=== PATIENT | male | born 1965 | race Caucasian/White ===

== ENCOUNTER 2016-06-05 10:26 | Emergency (ER) | payer OTHER, MEDICARE ==
[~2016-06-05] VITALS: Ht 185.4 cm; Wt 92.7 kg
[2016-06-05 10:29] VITALS: BP 139/96; PULSE 63; RESP 20; TEMP 98.6; O2SAT 92
[2016-06-05 10:54] VITALS: BP 143/82; PULSE 54; RESP 18; O2SAT 96
[2016-06-05] MEDS ORDERED: ALBUAER3 INH (11:12)
[2016-06-05] MEDS ORDERED: ZOFR4TAB PO (11:12)
[2016-06-05] MEDS ORDERED: PRED50 PO (11:12)
[2016-06-05] MEDS ORDERED: ZITHTAB PO (11:50)
--- NOTE | 2016-06-05 11:54 | PD ---
HPI Chief Complaint: Respiratory Symptoms Time Seen by Provider: 10:58 Travel History International Travel<30 days: No Contact w/Intl Traveler<30days: No Traveled to known affect area: No History of Present Illness HPI This patient complains of coughing up phlegm with blood in it. He says that his house has mold in it. He is worried about having a fungal infection. He specifically requests sputum be sent for fungal evaluation. He is [facility] for this given a prescription for antifungal medicine. He is currently on steroids and inhaler. He has no pulmonary disease and never smoked. He's also been to 3 different emergency rooms recently for the same thing. 2 days ago at [facility] emergency room he had a CT of his chest which was negative per his report. No fever. No chest pain. Symptoms severity is mild to moderate. PFSH Past Medical History Cancer: Yes (skin face) Past Surgical History Other Surgery: Yes (back, sciatic) Social History Alcohol Use: Yes (Social) Tobacco Use: No Substance Use: No Allergies-Medications (Allergen,Severity, Reaction): Coded Allergies: Vioxx (Verified Adverse Reaction, Severe, RHABDOMYOLYSIS, 06/05/16) Reported Meds & Prescriptions Reported Meds & Active Scripts Active Zithromax Z-Dustin (Azithromycin) 250 Mg Dspk 250 Mg PO DIRECTED 500 MG (2 tabs) day 1, then 1 tab days 2-5. Reported Proair Hfa 8.5 GM Inh (Albuterol Sulfate) 90 Mcg/Act Aer 2 Puff INH Q4-6H PRN 108 mcg/actuation Zofran (Ondansetron HCl) 4 Mg Tab 4 Mg PO Q8HR PRN Prednisone 50 Mg Tab 60 Mg PO DAILY Review of Systems General / Constitutional: No: Fever Cardiovascular: No: Chest Pain or Discomfort Respiratory: Positive: Cough Physical Exam Narrative RESPIRATORY: Respiratory effort unlabored, no retractions or use of accessory muscles. Breath sounds are clear and symmetric. CARDIOVASCULAR: Regular rate and rhythm without murmur. Extremities showed no edema or varicosities. NECK: Symmetrical appearance, midline trachea. No mass or crepitus. Thyroid without enlargement, tenderness, or mass. GASTROINTESTINAL: Abdomen soft, non-tender, nondistended. Positive bowel sounds. No hepato-splenomegaly, or palpable masses. No guarding. Data Data Last Documented VS Vital Signs Date Time Temp Pulse Resp B/P Pulse Ox O2 Delivery O2 Flow Rate FiO2 06/05/16 10:54 54 18 143/82 96 Room Air 06/05/16 10:29 98.6 Orders Electrocardiogram (06/05/16 ) Sputum Fungus Cult And Stain (06/05/16 11:49) Sputum Culture And Gram Stain (06/05/16 11:49) MDM Medical Decision Making Medical Screen Exam Complete: Yes Emergency Medical Condition: Yes Medical Record Reviewed: Yes Differential Diagnosis Bronchitis, pneumonia, COPD Narrative Course I have reviewed the patient's electronic medical record. Patient has a normal exam and normal vital signs. Room air saturation is 100% Lungs are clear I don't see emergent indication for further studies based on the large scale workup he is had the last few days. I did send a sputum for culture of bacteria and fungus They are where the fungal studies take a long time. They will have their [facility] primary check on the results of the studies He has not been on antibiotics throughout the course of this illness so I gave him a Zithromax pack Diagnosis Primary Impression: Acute bronchitis due to infection Additional Impression: Cough with hemoptysis Additional Instructions: The patient was advised to follow up with their physician and return if they worsen. Have your primary physician follow-up on the sputum studies we started today Med/Other Pt SpecificInfo: Prescription(s) given Scripts Azithromycin (Zithromax Z-Dustin)250 Mg [id number] Mg PO DIRECTED #1 DSPK Ref 0 500 MG (2 tabs) day 1, then 1 tab days 2-5. Prov:Lc Paez MD 06/05/16 Disposition: 01 DISCHARGE HOME Condition: Stable Lc Paez MD Jun 05, 2016 11:54
[2016-06-05 12:00] VITALS: BP 143/86
--- NOTE | 2016-06-05 21:42 | EKG ---
Date Performed: 06/05/2016 Time Performed: 10:45:17 PTAGE: 50 years EKG: SINUS BRADYCARDIA BORDERLINE ECG NO PREVIOUS TRACING DOCTOR: Sita Kwok Interpretating Date/Time 06/05/2016 21:41:11
== END 2016-06-05 12:37 | disposition home or self-care (01) ==
LOC: NEPA 10:26
DX: J20.9 Acute bronchitis, unspecified (principal); R94.31 Abnormal electrocardiogram [ECG] [EKG]
CPT/HCPCS: 87070; 87102; 87205; 87206; 93005

== ENCOUNTER 2016-06-11 10:39 | Emergency (ER) | payer MEDICARE, OTHER ==
[~2016-06-11] VITALS: Ht 182.9 cm; Wt 85.0 kg
[~2016-06-11 10:39] MED LIST: ALBUAER3 INH; PRED50 PO; ZITHTAB PO; ZOFR4TAB PO
[2016-06-11 10:44] VITALS: BP 151/94; PULSE 66; RESP 18; TEMP 98.2; O2SAT 98
--- NOTE | 2016-06-11 10:48 | PD ---
HPI . Left arm numbness, pain and chest pain Chief Complaint: Pain: Acute or Chronic Time Seen by Provider: 10:41 Travel History International Travel<30 days: No Contact w/Intl Traveler<30days: No Traveled to known affect area: No History of Present Illness HPI 50-year-old male with history of anxiety, chronic back pain, history of DVT in 1995 secondary acute trauma, hyperlipidemia, vein stripping, rhabdomyolysis in 2001 secondary Vioxx and Celebrex usage, history of basal cell carcinoma on the nose that had been removed here with complaints of left arm numbness, tingling, heaviness and chest discomfort. Patient says he was having the chest discomfort and decided [facility]. However the triage nurse decided to call fire rescue instead. He tells me that all of his symptoms are more than likely related to some issues with mold growing in his house. He reports that his caregiver who is also his significant other and mother of his child has issues, but they are not exactly the same as his. Of note he has been so the hospital 5 times in the last week. Most recently he was here at [place] on June 05 for mold exposure. He was treated with azithromycin. At the time of examination he denies any nausea, vomiting, diaphoresis or abdominal pain. He has no weakness or fatigue. [facility] Past Medical History Cancer: Yes (skin face) Past Surgical History Other Surgery: Yes (back, sciatic) Social History Alcohol Use: Yes (Social) Tobacco Use: No Substance Use: No Allergies-Medications (Allergen,Severity, Reaction): Coded Allergies: Vioxx (Verified Adverse Reaction, Severe, RHABDOMYOLYSIS, 06/11/16) Reported Meds & Prescriptions Reported Meds & Active Scripts Active Aspirin 325 Mg Tab 325 Mg PO DAILY Reported Proair Hfa 8.5 GM Inh (Albuterol Sulfate) 90 Mcg/Act Aer 2 Puff INH Q4-6H PRN 108 mcg/actuation Zofran (Ondansetron HCl) 4 Mg Tab 4 Mg PO Q8HR PRN Prednisone 50 Mg Tab 60 Mg PO DAILY Review of Systems General / Constitutional: No: Fever Eyes: No: Visual changes HENT: No: Headaches Cardiovascular: Positive: Chest Pain or Discomfort, No: Edema Respiratory: No: Shortness of Breath Gastrointestinal: No: Abdominal Pain Genitourinary: No: Dysuria Musculoskeletal: Positive: Pain (left arm) Skin: No Rash Neurologic: No: Weakness Psychiatric: No: Depression Endocrine: No: Polydipsia Hematologic/Lymphatic: No: Easy Bruising Physical Exam Narrative GENERAL: AAO x 3, no acute distress, Well-nourished, well-developed patient. Resting comfortably in bed. SKIN: Warm and dry. No visible rashes or bruising. HEAD: Normocephalic and atraumatic. EYES: No scleral icterus. No injection or drainage. ENT: No nasal drainage noted. Mucous membranes pink. Airway patent. NECK: Supple, trachea midline. No JVD. CARDIOVASCULAR: Regular rate and rhythm without murmurs, gallops, or rubs. RESPIRATORY: Breath sounds equal bilaterally. No accessory muscle use. No rhonchi or rales. GASTROINTESTINAL: Abdomen soft, non-tender, nondistended. EXTREMITIES: No cyanosis or edema. There is a small area of erythema on the right medial biceps area. No obvious deformity. On light palpation patient reports pain and tenderness. BACK: Nontender without obvious deformity. No CVA tenderness. PSYCH: AAO x 3, normal affect. Data Data Last Documented VS Vital Signs Date Time Temp Pulse Resp B/P Pulse Ox O2 Delivery O2 Flow Rate FiO2 06/11/16 11:16 151/94 06/11/16 10:51 98 Room Air 06/11/16 10:44 98.2 66 18 Orders Electrocardiogram (06/11/16 10:48) Basic Metabolic Panel (Bmp) (06/11/16 10:48) Ckmb (Isoenzyme) Profile (06/11/16 10:48) Complete Blood Count With Diff (06/11/16 10:48) Magnesium (Mg) (06/11/16 10:48) Prothrombin Time / Inr (Pt) (06/11/16 10:48) Act Partial Throm Time (Ptt) (06/11/16 10:48) Troponin I (06/11/16 10:48) Ecg Monitoring (06/11/16 10:48) Bilateral Bp Monitoring (06/11/16 10:48) Iv Access Insert/Monitor (06/11/16 10:48) Oximetry (06/11/16 10:48) Oxygen Administration (06/11/16 10:48) Sodium Chloride 0.9% Flush (Ns Flush) (06/11/16 11:00) Us Arm Venous Doppler (06/11/16 ) CKMB (06/11/16 11:00) CKMB% (06/11/16 11:00) Labs Laboratory Tests Test 06/11/16 11:00 White Blood Count 7.7 TH/MM3 Red Blood Count 4.80 MIL/MM3 Hemoglobin 14.6 GM/DL Hematocrit 41.4 % Mean Corpuscular Volume 86.1 FL Mean Corpuscular Hemoglobin 30.4 PG Mean Corpuscular Hemoglobin 35.2 % Concent Red Cell Distribution Width 12.8 % Platelet Count 239 TH/MM3 Mean Platelet Volume 8.5 FL Neutrophils (%) (Auto) 70.7 % Lymphocytes (%) (Auto) 20.9 % Monocytes (%) (Auto) 7.0 % Eosinophils (%) (Auto) 0.7 % Basophils (%) (Auto) 0.7 % Neutrophils # (Auto) 5.4 TH/MM3 Lymphocytes # (Auto) 1.6 TH/MM3 Monocytes # (Auto) 0.5 TH/MM3 Eosinophils # (Auto) 0.1 TH/MM3 Basophils # (Auto) 0.1 TH/MM3 CBC Comment DIFF FINAL Differential Comment Prothrombin Time 10.3 SEC Prothromb Time International 0.9 RATIO Ratio Activated Partial 24.5 SEC Thromboplast Time Sodium Level 141 MEQ/L Potassium Level 5.4 MEQ/L Chloride Level 106 MEQ/L Carbon Dioxide Level 27.1 MEQ/L Anion Gap 8 MEQ/L Blood Urea Nitrogen 16 MG/DL Creatinine 0.98 MG/DL Estimat Glomerular Filtration 80 ML/MIN Rate Random Glucose 99 MG/DL Calcium Level 8.7 MG/DL Magnesium Level 2.4 MG/DL Total Creatine Kinase 169 U/L Creatine Kinase MB 0.6 NG/ML Troponin I LESS THAN 0.02 NG/ML [facility] Medical Decision Making Medical Screen Exam Complete: Yes Emergency Medical Condition: Yes Medical Record Reviewed: Yes Differential Diagnosis Cervical radiculopathy and neuropathy, left arm DVT, less likely ACS Narrative Course 50-year-old male with history of anxiety, chronic back pain, history of DVT in 1995 secondary acute trauma, hyperlipidemia, vein stripping, rhabdomyolysis in 2001 secondary Vioxx and Celebrex usage, history of basal cell carcinoma on the nose that had been removed here with complaints of left arm numbness, tingling, heaviness and chest discomfort. Patient says he was having the chest discomfort and [facility]. However the triage nurse decided to call fire rescue instead. He tells me that all of his symptoms are more than likely related to some issues with mold growing in his house. He reports that his caregiver who is also his significant other and mother of his child has issues, but they are not exactly the same as his. Of note he has been so the hospital 5 times in the last week. Most recently he was here at [place] on June 05 for mold exposure. He was treated with azithromycin. At the time of examination he denies any nausea, vomiting, diaphoresis or abdominal pain. He has no weakness or fatigue. Patient seen and examined. Case discussed with Dr. Giles Recommend cardiac workup for chest discomfort. Recommend venous Doppler of left upper extremity to rule out DVT. If negative patient will be discharged home. Patient declined chest x-ray, and tells me he has had too much radiation the past several weeks. K+ elevated, but also hemolyzed. Troponin is negative. Venous Doppler with what appears to be superficial, phlebitis. Thrombus in cephalic. Discussed with Dr. Giles, in agreement patient can be discharged with full dose asa and f/u with PCP. I go to speak with patient and he is comfortable talking on his cell phone. I discussed with patient that he can take a full dose aspirin There is no need for full anticoagulation. Follow-up with his primary care provider. I have provided him with a candy packer who he can contact for further workup of his mold issue. Patient verbalized understanding of instructions, questions were answered, and thanked me for their care. I advised them if their condition worsens, please return to the nearest emergency room for further care. Diagnosis Primary Impression: Superficial thrombophlebitis Qualified Code: I80.8 - Superficial thrombophlebitis of left upper extremity Referrals: Nafisa Skelton MD Fuel Tank Sealer And Tester Patient Instructions: General Instructions Additional Instructions: Please return to emergency department if your symptoms return or worsen. Follow up with your primary care provider. Use warm compresses on the left arm. Take a full dose of Aspirin daily. Med/Other Pt SpecificInfo: Prescription(s) given Scripts Aspirin 325 Mg [id number] Mg PO DAILY #30 TAB Ref 0 Prov:Christiano Giles MD 06/11/16 Disposition: 01 DISCHARGE HOME Condition: Stable Sharona Viera Jun 11, 2016 10:48
[2016-06-11 10:51] VITALS: O2SAT 98
[2016-06-11] MEDS ORDERED: SODIUM CHLORIDE 0.9% FLUSH 5 ML FLUSH IVF PRN (11:00)
[2016-06-11 11:16] VITALS: BP 151/94
[2016-06-11 11:18] LABS: AUTOMATED NEUTROPHIL # 5.4 TH/MM3 (1.8-7.7); BASOPHIL # 0.1 TH/MM3 (0-0.2); BASOPHIL % 0.7 % (0.0-2.0); EOSINOPHIL # 0.1 TH/MM3 (0-0.4); EOSINOPHIL % 0.7 % (0.0-4.0); HEMATOCRIT 41.4 % (39.0-51.0); HEMO FLAGS DIFF FINAL; LYMPH % 20.9 % (9.0-44.0); LYMPHOCYTE # 1.6 TH/MM3 (1.0-4.8); MEAN CELL VOLUME 86.1 FL (80.0-100.0); MEAN CORPUSCULAR HEMOGLOBIN 30.4 PG (27.0-34.0); MEAN CORPUSCULAR HGB CONC 35.2 % (32.0-36.0); NEUT % 70.7 % (16.0-70.0); PLATELET COUNT 239 TH/MM3 (150-450); RED CELL DISTRIBUTION WIDTH 12.8 % (11.6-17.2); WHITE BLOOD COUNT 7.7 TH/MM3 (4.0-11.0)
[2016-06-11 11:26] LABS: INTERNATIONAL NORMALIZED RATIO 0.9 RATIO; PROTHROMBIN TIME - PATIENT 10.3 SEC (9.8-11.6)
[2016-06-11 11:28] LABS: APTT (PATIENT) 24.5 SEC (24.3-30.1)
[2016-06-11 11:42] LABS: ANION GAP 8 MEQ/L (5-15); BICARBONATE 27.1 MEQ/L (21.0-32.0); BLOOD UREA NITROGEN 16 MG/DL (7-18); CHLORIDE 106 MEQ/L (98-107); CREATINE KINASE 169 U/L (39-308); GLOMERULAR FILTRATION RATE 80 ML/MIN (>89); MAGNESIUM 2.4 MG/DL (1.5-2.5); SODIUM (NA) 141 MEQ/L (136-145)
[2016-06-11 11:44] LABS: POTASSIUM 5.4 MEQ/L (3.5-5.1)
[2016-06-11 11:57] LABS: CKMB 0.6 NG/ML (0.5-3.6)
--- NOTE | 2016-06-11 13:02 | PD ---
Data Data Last Documented VS Vital Signs Date Time Temp Pulse Resp B/P Pulse Ox O2 Delivery O2 Flow Rate FiO2 06/11/16 11:16 151/94 06/11/16 10:51 98 Room Air 06/11/16 10:44 98.2 66 18 Orders Electrocardiogram (06/11/16 10:48) Basic Metabolic Panel (Bmp) (06/11/16 10:48) Ckmb (Isoenzyme) Profile (06/11/16 10:48) Complete Blood Count With Diff (06/11/16 10:48) Magnesium (Mg) (06/11/16 10:48) Prothrombin Time / Inr (Pt) (06/11/16 10:48) Act Partial Throm Time (Ptt) (06/11/16 10:48) Troponin I (06/11/16 10:48) Ecg Monitoring (06/11/16 10:48) Bilateral Bp Monitoring (06/11/16 10:48) Iv Access Insert/Monitor (06/11/16 10:48) Oximetry (06/11/16 10:48) Oxygen Administration (06/11/16 10:48) Sodium Chloride 0.9% Flush (Ns Flush) (06/11/16 11:00) Us Arm Venous Doppler (06/11/16 ) CKMB (06/11/16 11:00) CKMB% (06/11/16 11:00) Labs Laboratory Tests Test 06/11/16 11:00 White Blood Count 7.7 TH/MM3 Red Blood Count 4.80 MIL/MM3 Hemoglobin 14.6 GM/DL Hematocrit 41.4 % Mean Corpuscular Volume 86.1 FL Mean Corpuscular Hemoglobin 30.4 PG Mean Corpuscular Hemoglobin 35.2 % Concent Red Cell Distribution Width 12.8 % Platelet Count 239 TH/MM3 Mean Platelet Volume 8.5 FL Neutrophils (%) (Auto) 70.7 % Lymphocytes (%) (Auto) 20.9 % Monocytes (%) (Auto) 7.0 % Eosinophils (%) (Auto) 0.7 % Basophils (%) (Auto) 0.7 % Neutrophils # (Auto) 5.4 TH/MM3 Lymphocytes # (Auto) 1.6 TH/MM3 Monocytes # (Auto) 0.5 TH/MM3 Eosinophils # (Auto) 0.1 TH/MM3 Basophils # (Auto) 0.1 TH/MM3 CBC Comment DIFF FINAL Differential Comment Prothrombin Time 10.3 SEC Prothromb Time International 0.9 RATIO Ratio Activated Partial 24.5 SEC Thromboplast Time Sodium Level 141 MEQ/L Potassium Level 5.4 MEQ/L Chloride Level 106 MEQ/L Carbon Dioxide Level 27.1 MEQ/L Anion Gap 8 MEQ/L Blood Urea Nitrogen 16 MG/DL Creatinine 0.98 MG/DL Estimat Glomerular Filtration 80 ML/MIN Rate Random Glucose 99 MG/DL Calcium Level 8.7 MG/DL Magnesium Level 2.4 MG/DL Total Creatine Kinase 169 U/L Creatine Kinase MB 0.6 NG/ML Troponin I LESS THAN 0.02 NG/ML MDM Supervised Visit with [facility]: Yes Narrative Course The history, exam, and medical decision-making in the associated mid-level provider note were completed with my assistance. I reviewed and agree with the findings presented. I attest that I had a [id number] encounter with the patient on the same day, and personally performed and documented my assessment and findings in the medical record. *My assessment and Findings: 50-year-old man presents to the emergency department complaining of left arm pain and redness, radiating into his chest. Ultrasound appears to show a superficial thrombophlebitis. He's been the ER multiple times for concerns that he attributes to mold in his house. 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 They've a lot of concerns about having to pay rent on property which has mold in it and about whether or not it safe to return. They state they have looked into it and that it is "illegal" to perform the test to determine if they have aspergillosis. I'm not really sure what he is referring to. In any case it sounds like he had some pulmonary symptoms recently with some hemoptysis and bronchitis and was treated with a Z-Dustin and feels somewhat better. I counseled him that if he is worried about pulmonary aspergillosis he should probably see a skiver operator. I think it is extremely unlikely that he would have disseminated aspergillosis and I told him as such. Patient has no history of immune compromise or other predisposing condition. Recommend treatment for thrombophlebitis warm compresses NSAIDs and outpatient follow-up. Diagnosis Primary Impression: Superficial thrombophlebitis Qualified Code: I80.8 - Superficial thrombophlebitis of left upper extremity Referrals: Nafisa Skelton MD Touch Up Painter Hand Patient Instructions: General Instructions Additional Instruction: Please return to emergency department if your symptoms return or worsen. Follow up with your primary care provider. Take a full dose of Aspirin daily. Scripts Aspirin 325 Mg [id number] Mg PO DAILY #30 TAB Ref 0 Prov:Christiano Giles MD 06/11/16 Disposition: 01 DISCHARGE HOME Condition: Stable Christiano Giles MD Jun 11, 2016 13:02
--- NOTE | 2016-06-11 13:15 | RADRPT ---
EXAM DATE/TIME: 06/11/2016 11:26 [facility] COMPARISON: No previous studies available for comparison. INDICATIONS: Arm swelling, pain. MEDICAL HISTORY: Skin cancer. SURGICAL HISTORY: Back surgery. ENCOUNTER: Initial ACUITY: 1 day PAIN SCORE: 5/10 LOCATION: Left arm. FINDINGS: There is abnormal thrombus in the mid to distal portion of the left cephalic vein. The vein is not c ompressible with hypoechoic thrombus. The rest of the venous system is unremarkable to the left uppe r arm. Internal jugular is unremarkable. CONCLUSION: Thrombus is identified within the left cephalic vein in the mid and distal portions. Christiano Dela Cruz MD on June 11, 2016 at 12:59 Board Certified Radiologist. This report was verified electronically.
[2016-06-11] MEDS ORDERED: ASPI325T PO (13:20)
--- NOTE | 2016-06-12 11:37 | EKG ---
Date Performed: 06/11/2016 Time Performed: 11:14:50 PTAGE: 50 years EKG: Sinus rhythm POSSIBLE LATERAL MYOCARDIAL INFARCTION BORDERLINE ECG PREVIOUS TRACING : 06/05/2016 10.45 DOCTOR: Christiano Murrieta Interpretating Date/Time 06/12/2016 11:36:23
== END 2016-06-11 13:34 | disposition home or self-care (01) ==
LOC: NEPC 10:39
DX: I80.8 Phlebitis and thrombophlebitis of other sites (principal); R94.31 Abnormal electrocardiogram [ECG] [EKG]; R07.89 Other chest pain; E78.5 Hyperlipidemia, unspecified; Z86.59 Personal history of other mental and behavioral disorders; Z87.39 Personal history of other diseases of the musculoskeletal system and connective tissue; Z86.718 Personal history of other venous thrombosis and embolism; Z85.828 Personal history of other malignant neoplasm of skin
CPT/HCPCS: 80048; 82550; 82552; 83735; 84484; 85025; 85610; 85730; 93005; 93971